=== PATIENT | male | born 1995 | race African-American/Black ===

== ENCOUNTER → 2020-11-13 | Outpatient (CLI) | payer OTHER | LOC: MHCPAIN 14:12 | DX: M53.3 Sacrococcygeal disorders, not elsewhere classified (principal); M47.816 Spondylosis without myelopathy or radiculopathy, lumbar region; M54.5 Low back pain; M41.86 Other forms of scoliosis, lumbar region; G89.29 Other chronic pain | CPT/HCPCS: G0463 ==

== ENCOUNTER → 2020-11-15 | Outpatient (CLI) | payer OTHER | LOC: MHCPAIN 10:32 | DX: M53.3 Sacrococcygeal disorders, not elsewhere classified (principal); M79.18 Myalgia, other site; M41.25 Other idiopathic scoliosis, thoracolumbar region; M47.818 Spondylosis without myelopathy or radiculopathy, sacral and sacrococcygeal region | CPT/HCPCS: G0260; J1040; Q9967 ==

== ENCOUNTER → 2020-11-26 | Outpatient (CLI) | payer OTHER | LOC: MHCPAIN 10:21 | DX: M41.86 Other forms of scoliosis, lumbar region (principal); M79.18 Myalgia, other site; M53.3 Sacrococcygeal disorders, not elsewhere classified; M54.5 Low back pain; G89.29 Other chronic pain | CPT/HCPCS: G0463 ==